=== PATIENT | male | born 1960 | race Caucasian/White ===

== ENCOUNTER 2018-03-26 10:50 | Emergency (ER) | payer MEDICARE ==
[2018-03-26 12:02] LABS: VBG BASE EXCESS 0.5 (-2.0-2.0); VBG HCO3- 25.4 meq/L (22-28); VBG HEMOGLOBIN 16.3; VBG O2 SATURATION 80.7 (95-100); VBG POTASSIUM 3.8 (3.5-5.1); VBG pH 7.4 (7.32-7.42)
[2018-03-26 12:03] LABS: VBG CARBOXYHEMOGLOBIN 8.5 % T HGB (0.0-6.9)
[2018-03-26] MEDS ORDERED: Sodium Chloride 0.9% 1000 ML 1,000 ML IV STA (12:50)
[2018-03-26] MEDS ORDERED: Zofran 4 MG/2 ML VIAL IV ONE (12:50)
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
[2018-03-26 12:58] LABS: BASOPHIL % 0.2 % (0.0-0.4); Basophil (Absolute #) 0.01 (0-0.4); Eosinophil % 1.5 % (0.00-5.0); Eosinophil (Absolute #) 0.08 (0-0.5); Granulocyte Absolute (ANC) 3.27 (1.4-6.9); Granulocytes % 62.8 % (36.0-66.0); Hematocrit 44.2 % (42-50); Hemoglobin 15.7 gm/dl (12.5-18.0); Lymphocytes % 28.8 % (24.0-44.0); Mean Cell Volume 91.7 fl (78-100); Mean Corpuscular Hemoglobin 32.6 pg (26-32); Mean Corpuscular Hgb Concent. 35.5 g/dl (32-36); Mean Platelet Volume 9.9 fl (6-9.5); Monocyte (Absolute #) 0.35 (0.0-1.3); Monocytes % 6.7 % (0.0-12.0); Platelet Count 166 K/mm3 (150-450); Red Blood Count 4.82 M/mm3 (4.1-5.6); Red Cell Distribution Width 12.9 % (11.5-14.0); White Blood Count 5.2 K/mm3 (4.0-10.5)
[2018-03-26 13:02] LABS: ANION GAP 10.4 MEQ/L (5-15); BLOOD UREA NITROGEN 11 mg/dL (9-20); CHLORIDE 109 mmol/L (98-107); Calcium 9.5 mg/dL (8.4-10.2); Carbon Dioxide 25 mmol/L (22-30); Glucose 137 mg/dL (74-106); Potassium 3.8 mmol/L (3.5-5.1); SODIUM 140 mmol/L (137-145)
[2018-03-26] MEDS ORDERED: Sodium Chloride 0.9% 1000 ML 1,000 ML ONE (13:14)
[2018-03-26] MEDS ORDERED: Zofran 4 MG/2 ML VIAL ONE (13:14)
[2018-03-26 13:34] VITALS: BP 158/86; PULSE 71
[2018-03-26] MEDS ORDERED: Rocephin 1000 MG INJ IM ONE (14:09)
[2018-03-26 14:12] VITALS: O2SAT 99
[2018-03-26] MEDS ORDERED: ROCEPHIN 1 Gm-D5w 50 ml Bag** 1 G/50 ML IVPB IV STA (14:12)
[2018-03-26] MEDS ORDERED: ROCEPHIN 1 Gm-D5w 50 ml Bag** 1 G/50 ML IVPB IV ONE (14:16)
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
== END 2018-03-26 14:59 | disposition home or self-care (01) ==
LOC: ED 10:50
DX: Z77.118 Contact with and (suspected) exposure to other environmental pollution (principal); R91.8 Other nonspecific abnormal finding of lung field; R11.0 Nausea; R51 Headache; Z79.899 Other long term (current) drug therapy
CPT/HCPCS: 36000; 36415; 71046; 80048; 82805; 84484; 85025; 93005; 96360; 96365; 96374; 99284; J0696; J2405

== ENCOUNTER 2019-03-24 13:46 | Emergency (ER) | payer MEDICARE ==
[2019-03-24 14:00] VITALS: O2SAT 98
[2019-03-24] MEDS ORDERED: EMLA Cream 5 GM TP ONE (14:03)
--- NOTE | 2019-03-24 14:05 | ERPHSYRPT ---
- History of Present Illness Time Seen by Provider: 03/24/19 14:04 Source: patient Exam Limitations: no limitations Patient Subjective Stated Complaint: PT states "I noticed a spot or boil 3 days ago and it really hurts." Triage Nursing Assessment: Pt presented alert and oriented X 3, skin pwd Pt ambualtes with an upright steady gait, able to speak in clear full sentencs pt in no apprent respiratory distress. pt has abscess approx 11 cm X 8 cm Physician History: 59 y/o diabetic white male presents with right lower back redness, swelling and tenderness. sx worsening. pt did take the final one of his hydrocodone for the pain and it helped. pt states no fevers. Timing/Duration: day(s) (3), worse Quality: burning, painful Severity: moderate Location: other (right lower back) Possible Causes: insect bite (possible) Associated Symptoms: swelling/mass/lumps, No difficulty breathing, No fever Allergies/Adverse Reactions: codeine [Codeine] Allergy (Unknown, Verified 08/02/18 08:36) Nausea Home Medications: Alprazolam 1 mg [Xanax 1 mg] 1 mg PO TID 07/11/12 [History] Metformin HCl 500 mg [Glucophage 500 MG] 500 mg PO BID 07/11/12 [History] Atorvastatin Calcium [Lipitor] 40 mg PO DAILY 02/15/17 [History] Cyanocobalamin (Vitamin B-12) [Vitamin B-12] 250 mcg PO DAILY 02/15/17 [History] Etodolac [Lodine] 1 tab PO BID 02/15/17 [History] raNITIdine HCl [Zantac] 1 tab PO BID 02/15/17 [History] Gabapentin 300 mg PO BID 03/26/18 [History] Tapentadol HCl [Nucynta ER] 150 mg PO BID 03/26/18 [History] Hx Tetanus, Diphtheria Vaccination/Date Given: No Hx Influenza Vaccination/Date Given: No Hx Pneumococcal Vaccination/Date Given: No Immunizations Up to Date: Yes - Review of Systems Constitutional: No Symptoms Eyes: No Symptoms Ears, Nose, & Throat: No Symptoms Respiratory: No Symptoms Cardiac: No Symptoms Abdominal/Gastrointestinal: No Symptoms Genitourinary Symptoms: No Symptoms Musculoskeletal: No Symptoms Skin: Cellulitis, Induration (mild drainage at home. none today), Other Neurological: No Symptoms Psychological: No Symptoms Endocrine: No Symptoms Hematologic/Lymphatic: No Symptoms Immunological/Allergic: No Symptoms All Other Systems: Reviewed and Negative - Past Medical History Pertinent Past Medical History: Yes Neurological History: No Pertinent History ENT History: No Pertinent History Cardiac History: No Pertinent History Respiratory History: No Pertinent History Endocrine Medical History: Diabetes Type II Musculoskeletal History: Degenerative Disk Disease GI Medical History: No Pertinent History History: No Pertinent History Psycho-Social History: Anxiety, Depression Male Reproductive Disorders: No Pertinent History Other Medical History: pt is a smoker, compression fx of lumbar vertebrae - Past Surgical History Past Surgical History: Yes Neuro Surgical History: No Pertinent History Cardiac: No Pertinent History Respiratory: No Pertinent History Gastrointestinal: No Pertinent History Genitourinary: No Pertinent History Musculoskeletal: Orthopedic Surgery Male Surgical History: No Pertinent History Other Surgical History: right hand reconstructive - Social History Smoking Status: Current every day smoker How long have you smoked: years Exposure to second hand smoke: Yes Drug Use: none Patient Lives Alone: Yes - Nursing Vital Signs Nursing Vital Signs: Initial Vital Signs Temperature 98.2 F 03/24/19 13:53 Pulse Rate 86 03/24/19 13:53 Respiratory Rate 20 03/24/19 13:53 Blood Pressure 144/90 03/24/19 13:53 O2 Sat by Pulse Oximetry 98 03/24/19 13:53 Pain Scale Pain Intensity 8 - Physical Exam General Appearance: mild distress, alert, anxiety Eye Exam: PERRL/EOMI, eyes nml inspection Ears, Nose, Throat Exam: normal ENT inspection, moist mucous membranes Neck Exam: normal inspection, non-tender, supple, full range of motion Respiratory Exam: airway intact, No chest tenderness, No respiratory distress Cardiovascular Exam: normal heart sounds Gastrointestinal/Abdomen Exam: No tenderness Rectal Exam: not done Back Exam: normal range of motion, other (right lower back horizontally oriented 3cm X 9cm well circumscribed area of cellulitis, induration and possible abscess. 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 as tested, normal mood/affect, nml cerebellar function, nml station & gait Skin Exam: other (see above) Lymphatic Exam: No adenopathy SpO2 Interpretation: normal SpO2: 98 O2 Delivery: Room Air Procedures - Incision and Drainage Timeout: Performed Site: right lower back Anesthesia: emla cream Blade Size: 15 I & D Procedure: betadine prep, hibiclens prep, culture obtained, irrigated with normal saline Results: moderate amount pus Progress: pt ruy well - Course Nursing assessment & vital signs reviewed: Yes Ordered Tests: Active Orders 24 hr Category Date Time Status Wound Care STAT Care 03/24/19 14:08 Active CULTURE,WOUND Stat Lab 03/24/19 14:11 Ordered Medication Summary Discontinued Medications Generic Name Dose Route Start Last Admin Trade Name Jose PRN Reason Stop Dose Admin Hydrocodone Bitart/Acetaminophen 1 tab 03/24/19 14:08 03/24/19 14:13 Timpson 5/325 Mg PO 03/24/19 14:09 1 tab STAT ONE Administration Hydrocodone Bitart/Acetaminophen Confirm 03/24/19 14:12 Timpson 5/325 Mg Administered 03/24/19 14:13 Dose 1 tab .ROUTE .STK-MED ONE Cephalexin HCl 500 mg 03/24/19 14:08 03/24/19 14:13 Keflex 500 Mg PO 03/24/19 14:09 500 mg STAT ONE Administration Cephalexin HCl Confirm 03/24/19 14:12 Keflex 500 Mg Administered 03/24/19 14:13 Dose 500 mg .ROUTE .STK-MED ONE Lidocaine/Prilocaine 2.5 gm 03/24/19 14:03 03/24/19 14:10 Emla Cream 5 Gm TP 03/24/19 14:04 2.5 gm STAT ONE Administration - Progress Progress: improved Progress Note: 03/24/19 15:19 pt ruy i and d well. Counseled pt/family regarding: diagnosis, need for follow-up - Departure Departure Disposition: Home Clinical Impression: Abscess of back Condition: Stable Critical Care Time: No Referrals: DAFNE CACERES [Primary Care Provider] - Additional Instructions: no ointments, lotions, or creams. wash site in shower 2 times daily and cover with bandage. while in shower, express site to remove any residual pus if present. follow up with primary doctor for further management Prescriptions: Hydrocodone/APAP 5/325 [Timpson 5/325 mg] 1 each PO Q8H PRN PRN #9 tablet MDD 3 PRN Reason: Pain Smz/Tmp Ds Tablet [Bactrim Ds Tablet] 1 udtab PO BID #14 tablet
[2019-03-24] MEDS ORDERED: KEFLEX 500 MG PO ONE (14:08)
[2019-03-24] MEDS ORDERED: NORCO 5/325 MG PO ONE ×2 (14:08→15:25)
[2019-03-24] MEDS ORDERED: NORCO 5/325 MG ONE ×2 (14:12→15:34)
[2019-03-24] MEDS ORDERED: KEFLEX 500 MG ONE (14:12)
[2019-03-24] MEDS ORDERED: BACTRIM DS TABLET PO ONE ×2 (15:26→15:34)
[2019-03-24 15:45] VITALS: BP 132/86; PULSE 68
== END 2019-03-24 15:52 | disposition home or self-care (01) ==
LOC: ED 13:46
DX: L02.212 Cutaneous abscess of back [any part, except buttock and flank] (principal); Z79.899 Other long term (current) drug therapy
CPT/HCPCS: 10060; 87070; 87077; 99284; A9270-GY

== ENCOUNTER 2019-11-29 10:20 | Emergency (ER) | payer MEDICARE ==
--- NOTE | 2019-11-29 10:38 | ERPHSYRPT ---
- History of Present Illness Time Seen by Provider: 11/29/19 10:38 Source: patient Exam Limitations: no limitations Patient Subjective Stated Complaint: Pt states "I have been feeling bad for awhile now, my sugar has been in the 500 and 400 range." Triage Nursing Assessment: Pt presented alert and oriented X 3, skin pwd Pt ambualtes with an upright slow gait, able to speak in full, slow sentences pt in no apparent respiratory distress. Physician History: This is a 59-year-old white male with a history of hypertension and [id number] diabetes and is a patient of Dr. Valdivia who presents to the emergency department with with generalized malaise and just not feeling well per his report. Patient states that his blood sugars have been well controlled and he is taking his medicine as prescribed. He says he is generally eating the way he normally eats. He is not eating differently than he normally does. However, he notices his blood sugars now in the 400-500 range. Patient was at the hospital obtaining x-rays of his shoulder and cervical spine and just was not feeling well so he came to the emergency department. Patient denies chest pain and he denies shortness of breath. He has no abdominal pain. He has had no nausea vomiting or diarrhea. He has no fevers and no flulike symptoms. Timing/Duration: day(s) (Several days) Severity: mild Associated Symptoms: malaise, weakness Allergies/Adverse Reactions: codeine [Codeine] Allergy (Unknown, Verified 10/16/19 13:06) Nausea Home Medications: Alprazolam 1 mg [Xanax 1 mg] 1 mg PO QID 07/11/12 [History] Metformin HCl 500 mg [Glucophage 500 MG] 2 tab PO BID 07/11/12 [History] Atorvastatin Calcium [Lipitor] 80 mg PO DAILY 02/15/17 [History] Gabapentin 300 mg PO TID 03/26/18 [History] Albuterol Sulfate [Albuterol Sulfate Hfa] 1 puff IH DAILY 10/16/19 [History] Cyclobenzaprine HCl 10 mg [Cyclobenzaprine 10 MG] 1 tab PO BID 10/16/19 [History] Varenicline Tartrate [Chantix] 1 tab PO BID 10/16/19 [History] Hx Tetanus, Diphtheria Vaccination/Date Given: No Hx Influenza Vaccination/Date Given: No Hx Pneumococcal Vaccination/Date Given: No Immunizations Up to Date: Yes Travel Risk - International Travel Have you traveled outside of the country in past 3 weeks: No - Coronavirus Screening Are you exhibiting any of the following symptoms?: No Close contact with a COVID-19 positive Pt in past 14-21 Days: No - Review of Systems Constitutional: Malaise, Weakness Eyes: No Symptoms Ears, Nose, & Throat: No Symptoms Respiratory: No Symptoms Cardiac: No Symptoms Abdominal/Gastrointestinal: No Symptoms Genitourinary Symptoms: No Symptoms Musculoskeletal: No Symptoms Skin: No Symptoms Neurological: No Symptoms Psychological: No Symptoms Endocrine: No Symptoms Hematologic/Lymphatic: No Symptoms Immunological/Allergic: No Symptoms All Other Systems: Reviewed and Negative - Past Medical History Pertinent Past Medical History: Yes Neurological History: No Pertinent History ENT History: No Pertinent History Cardiac History: No Pertinent History Respiratory History: Other Endocrine Medical History: Diabetes Type II Musculoskeletal History: Other GI Medical History: GERD History: No Pertinent History Psycho-Social History: No Pertinent History, Anxiety, Depression, Other Male Reproductive Disorders: No Pertinent History Other Medical History: Current everyday smoker. Uses inhalers as needed. Spine problems. PTSD - Past Surgical History Past Surgical History: Yes Neuro Surgical History: No Pertinent History Cardiac: No Pertinent History Respiratory: No Pertinent History Gastrointestinal: No Pertinent History Genitourinary: No Pertinent History Musculoskeletal: Orthopedic Surgery Male Surgical History: No Pertinent History Other Surgical History: Right hand surgery. - Social History Smoking Status: Current every day smoker How long have you smoked: years Exposure to second hand smoke: Yes Drug Use: none Patient Lives Alone: Yes - Nursing Vital Signs Nursing Vital Signs: Initial Vital Signs Temperature 98.7 F 11/29/19 10:32 Pulse Rate 70 11/29/19 10:32 Respiratory Rate 18 11/29/19 10:32 Blood Pressure 130/76 11/29/19 10:32 O2 Sat by Pulse Oximetry 97 11/29/19 10:32 Pain Scale Pain Intensity 0 - Physical Exam General Appearance: no apparent distress, alert, anxiety Eye Exam: PERRL/EOMI, eyes nml inspection Ears, Nose, Throat Exam: normal ENT inspection, moist mucous membranes Neck Exam: normal inspection, non-tender, supple, full range of motion Respiratory Exam: normal breath sounds, lungs clear, airway intact, No chest tenderness, No respiratory distress Cardiovascular Exam: regular rate/rhythm, normal heart sounds, normal peripheral pulses Gastrointestinal/Abdomen Exam: soft, normal bowel sounds, No tenderness, No guarding, No rebound Rectal Exam: not done Back Exam: normal inspection, normal range of motion, No CVA tenderness, No vertebral tenderness Extremity Exam: normal inspection, normal range of motion, pelvis stable Neurologic Exam: alert, oriented x 3, cooperative, surgical brace maker II-XII nml as tested, normal mood/affect, nml cerebellar function, nml station & gait, sensation nml Skin Exam: normal color, warm, dry Lymphatic Exam: No adenopathy SpO2 Interpretation: normal SpO2: 97 O2 Delivery: Room Air - Course Nursing assessment & vital signs reviewed: Yes Ordered Tests: Active Orders 24 hr Category Date Time Status Pot Room Tapper STAT Care 11/29/19 10:48 Active EKG-ER Only STAT Care 11/29/19 10:48 Active IV Insertion STAT Care 11/29/19 10:48 Active Pulse Oximetry (ED) STAT Care 11/29/19 10:48 Active CBC W DIFF Stat Lab 11/29/19 11:00 Completed CMP Stat Lab 11/29/19 11:00 Completed Lactic Acid Stat Lab 11/29/19 13:09 Completed Lactic Acid Urgent Lab 11/29/19 11:07 Completed MAGNESIUM Stat Lab 11/29/19 11:00 Completed TROPONIN Q3H Lab 11/29/19 11:00 Completed TROPONIN Q3H Lab 11/29/19 14:00 Ordered TROPONIN Q3H Lab 11/29/19 17:00 Ordered TROPONIN Q3H Lab 11/29/19 20:00 Ordered TROPONIN Q3H Lab 11/29/19 23:00 Ordered UA W/RFX UR CULTURE Stat Lab 11/29/19 13:59 Completed Medication Summary Discontinued Medications Generic Name Dose Route Start Last Admin Trade Name Freq PRN Reason Stop Dose Admin Sodium Chloride 1,000 mls @ 999 mls/hr 11/29/19 10:48 11/29/19 12:22 Sodium Chloride 0.9% 1000 Ml IV 11/29/19 11:48 Infused .Q1H1M STA Infusion Sodium Chloride Confirm 11/29/19 11:05 Sodium Chloride 0.9% 1000 Ml Administered 11/29/19 11:06 Dose 1,000 mls @ ud .ROUTE .STK-MED ONE Sodium Chloride 1,000 mls @ 999 mls/hr 11/29/19 13:15 11/29/19 13:18 Sodium Chloride 0.9% 1000 Ml IV 11/29/19 14:15 999 mls/hr .Q1H1M STA Administration Sodium Chloride Confirm 11/29/19 13:16 Sodium Chloride 0.9% 1000 Ml Administered 11/29/19 13:17 Dose 1,000 mls @ ud .ROUTE .STK-MED ONE Insulin Human Regular 5 unit 11/29/19 12:00 11/29/19 13:05 Humulin R IV 11/29/19 12:01 5 unit STAT ONE Administration Insulin Human Regular Confirm 11/29/19 13:00 Humulin R Administered 11/29/19 13:01 Dose 5 unit .ROUTE .STK-MED ONE Lab/Rad Data: Laboratory Result Diagrams 11/29/19 11:00 11/29/19 11:00 Laboratory Results 11/29/19 11/29/19 11/29/19 Range/Units 13:59 13:09 11:07 WBC (4.0-10.5) K/mm3 RBC (4.1-5.6) M/mm3 Hgb (12.5-18.0) gm/dl Hct (42-50) % MCV (78-100) fl MCH (26-32) pg MCHC (32-36) g/dl RDW (11.5-14.0) % Plt Count (150-450) K/mm3 MPV (7.5-11.0) fl Gran % (36.0-66.0) % Eos # (Auto) (0-0.5) Absolute Lymphs (auto) (1.0-4.6) Absolute Monos (auto) (0.0-1.3) Lymphocytes % (24.0-44.0) % Monocytes % (0.0-12.0) % Eosinophils % (0.00-5.0) % Basophils % (0.0-0.4) % Absolute Granulocytes (1.4-6.9) Basophils # (0-0.4) Sodium (137-145) mmol/L Potassium (3.5-5.1) mmol/L Chloride (98-107) mmol/L Carbon Dioxide (22-30) mmol/L Anion Gap (5-15) MEQ/L BUN (9-20) mg/dL Creatinine (0.66-1.25) mg/dL Estimated GFR ML/MIN Glucose (74-106) mg/dL Lactic Acid 2.0 2.8 H (0.4-2.0) Calcium (8.4-10.2) mg/dL Magnesium (1.6-2.3) mg/dL Total Bilirubin (0.2-1.3) mg/dL AST (17-59) U/L ALT (0-50) U/L Alkaline Phosphatase (38-126) U/L Troponin I (0.000-0.034) ng/mL Serum Total Protein (6.3-8.2) g/dL Albumin (3.5-5.0) g/dL Urine Color YELLOW (YELLOW) Urine Appearance CLEAR (CLEAR) Urine pH 5.0 (5-6) Ur Specific [place] 1.024 (1.005-1.025) Urine Protein NEGATIVE (Negative) Urine Ketones NEGATIVE (NEGATIVE) Urine Blood NEGATIVE (0-5) Omar/ul Urine Nitrite NEGATIVE (NEGATIVE) Urine Bilirubin NEGATIVE (NEGATIVE) Urine Urobilinogen NEGATIVE (0-1) mg/dL Ur Leukocyte Esterase NEGATIVE (NEGATIVE) Urine WBC (Auto) NONE (0-5) /HPF Urine RBC (Auto) NONE (0-2) /HPF U Epithel Cells (Auto) NONE (FEW) /HPF Urine Bacteria (Auto) NONE (NEGATIVE) /HPF Urine Mucus (Auto) SLIGHT (NEGATIVE) /HPF Urine Culture Reflexed NO (NO) Urine Glucose >=500 (NEGATIVE) mg/dL 11/29/19 11/29/19 11/29/19 Range/Units 11:00 11:00 11:00 WBC 6.8 (4.0-10.5) K/mm3 RBC 4.70 (4.1-5.6) M/mm3 Hgb 14.7 (12.5-18.0) gm/dl Hct 42.0 (42-50) % MCV 89.4 (78-100) fl MCH 31.3 (26-32) pg MCHC 35.0 (32-36) g/dl RDW 13.2 (11.5-14.0) % Plt Count 144 L (150-450) K/mm3 MPV 10.1 (7.5-11.0) fl Gran % 46.1 (36.0-66.0) % Eos # (Auto) 0.54 H (0-0.5) Absolute Lymphs (auto) 2.55 (1.0-4.6) Absolute Monos (auto) 0.53 (0.0-1.3) Lymphocytes % 37.3 (24.0-44.0) % Monocytes % 7.8 (0.0-12.0) % Eosinophils % 7.9 H (0.00-5.0) % Basophils % 0.9 (0.0-0.4) % Absolute Granulocytes 3.15 (1.4-6.9) Basophils # 0.06 (0-0.4) Sodium 131 L (137-145) mmol/L Potassium 4.3 (3.5-5.1) mmol/L Chloride 98 (98-107) mmol/L Carbon Dioxide 24 (22-30) mmol/L Anion Gap 13.6 (5-15) MEQ/L BUN 14 (9-20) mg/dL Creatinine 0.90 (0.66-1.25) mg/dL Estimated GFR > 60.0 ML/MIN Glucose 362 H (74-106) mg/dL Lactic Acid (0.4-2.0) Calcium 9.4 (8.4-10.2) mg/dL Magnesium 1.7 (1.6-2.3) mg/dL Total Bilirubin 2.00 H (0.2-1.3) mg/dL AST 77 H (17-59) U/L ALT 72 H (0-50) U/L Alkaline Phosphatase 108 (38-126) U/L Troponin I < 0.012 (0.000-0.034) ng/mL Serum Total Protein 7.1 (6.3-8.2) g/dL Albumin 4.1 (3.5-5.0) g/dL Urine Color (YELLOW) Urine Appearance (CLEAR) Urine pH (5-6) Ur Specific [place] (1.005-1.025) Urine Protein (Negative) Urine Ketones (NEGATIVE) Urine Blood (0-5) Omar/ul Urine Nitrite (NEGATIVE) Urine Bilirubin (NEGATIVE) Urine Urobilinogen (0-1) mg/dL Ur Leukocyte Esterase (NEGATIVE) Urine WBC (Auto) (0-5) /HPF Urine RBC (Auto) (0-2) /HPF U Epithel Cells (Auto) (FEW) /HPF Urine Bacteria (Auto) (NEGATIVE) /HPF Urine Mucus (Auto) (NEGATIVE) /HPF Urine Culture Reflexed (NO) Urine Glucose (NEGATIVE) mg/dL - Progress Progress: improved, re-examined Progress Note: 11/29/19 13:27 Patient states he is feeling much better. We are providing him with another liter of fluid and we will recheck his blood sugar again. We are awaiting the results of all his tests. 11/29/19 14:24 Patient states he is still feeling much better. He has no chest pain he has no shortness of breath. His blood sugar has improved. Counseled pt/family regarding: lab results, diagnosis, need for follow-up - Departure Departure Disposition: Home Clinical Impression: Hyperglycemia, Weakness Condition: Stable Critical Care Time: No Referrals: CHIDI VALDIVIA [Primary Care Provider] - Additional Instructions: Monitor your blood sugar closely. Take your medications as prescribed. Follow- up with your primary care physician tomorrow and make arrangements for a follow- up evaluation.
[2019-11-29] MEDS ORDERED: Sodium Chloride 0.9% 1000 ML 1,000 ML IV STA ×2 (10:48→13:15)
[2019-11-29] MEDS ORDERED: Sodium Chloride 0.9% 1000 ML 1,000 ML ONE ×2 (11:05→13:16)
[2019-11-29 11:15] LABS: Absolute Neutrophil Ct (ANC) 3.15 (1.4-6.9); BASOPHIL % 0.9 % (0.0-0.4); Basophil (Absolute #) 0.06 (0-0.4); Eosinophil % 7.9 % (0.00-5.0); Eosinophil (Absolute #) 0.54 (0-0.5); Hemoglobin 14.7 gm/dl (12.5-18.0); Lymphocyte (Absolute #) 2.55 (1.0-4.6); Lymphocytes % 37.3 % (24.0-44.0); Mean Cell Volume 89.4 fl (78-100); Mean Corpuscular Hemoglobin 31.3 pg (26-32); Mean Platelet Volume 10.1 fl (7.5-11.0); Monocyte (Absolute #) 0.53 (0.0-1.3); Monocytes % 7.8 % (0.0-12.0); Neutrophil % 46.1 % (36.0-66.0); Platelet Count 144 K/mm3 (150-450); Red Cell Distribution Width 13.2 % (11.5-14.0); White Blood Count 6.8 K/mm3 (4.0-10.5)
[2019-11-29 11:35] LABS: ALBUMIN 4.1 g/dL (3.5-5.0); ALKALINE PHOSPHATASE 108 U/L (38-126); ANION GAP 13.6 MEQ/L (5-15); BLOOD UREA NITROGEN 14 mg/dL (9-20); CHLORIDE 98 mmol/L (98-107); Calcium 9.4 mg/dL (8.4-10.2); Carbon Dioxide 24 mmol/L (22-30); Glucose 362 mg/dL (74-106); MAGNESIUM 1.7 mg/dL (1.6-2.3); Potassium 4.3 mmol/L (3.5-5.1); SGOT/AST 77 U/L (17-59); SGPT/ALT 72 U/L (0-50); SODIUM 131 mmol/L (137-145); Total Protein 7.1 g/dL (6.3-8.2)
[2019-11-29] MEDS ORDERED: HUMULIN R IV ONE (12:00)
[2019-11-29] MEDS ORDERED: HUMULIN R ONE (13:00)
[2019-11-29 13:27] LABS: Appearance CLEAR (CLEAR); Bilirubin NEGATIVE (NEGATIVE); Blood NEGATIVE Ery/ul (0-5); Glucose >=500 mg/dL (NEGATIVE); Ketones NEGATIVE (NEGATIVE); Leukocyte Esterase NEGATIVE (NEGATIVE); Mucus SLIGHT /HPF (NEGATIVE); Nitrite NEGATIVE (NEGATIVE); Protein,Urine Dip NEGATIVE (Negative); Specific Gravity 1.024 (1.005-1.025); Urobilinogen NEGATIVE mg/dL (0-1)
[2019-11-29 14:35] VITALS: BP 142/88; PULSE 67; O2SAT 98
[2019-11-30 23:40] LABS: HEPATITIS A IGM Non Reactive (Non Reactive); HEPATITIS B VIRUS CORE TOT AB Non Reactive (Non Reactive); HEPATITIS C VIRUS ANTIBODY Non Reactive (Non Reactive); Hepatitis B Surface Ab.Quant. <3.50 mIU/mL (0.00-8.49); Hepatitis B Surface Antigen Non Reactive (Non Reactive)
== END 2019-11-29 14:56 | disposition home or self-care (01) ==
LOC: ED 10:20
DX: E11.65 Type 2 diabetes mellitus with hyperglycemia (principal); F41.9 Anxiety disorder, unspecified; R53.1 Weakness
CPT/HCPCS: 36000; 36415; 80053; 80074; 81001; 82962; 83605; 83735; 84484; 85025; 93005; 93041; 94760; 96360; 96361; 96374; 99284; J1815